=== PATIENT | male | born 1990 | race Caucasian/White ===

== ENCOUNTER 2017-08-29 07:45 | Emergency (ER) | payer SELFPAY ==
[~2017-08-29] VITALS: Ht 167.6 cm; Wt 83.9 kg
[2017-08-29 07:50] VITALS: Ht 167.6 cm; Wt 83.9 kg
[2017-08-29 08:50] VITALS: BP 142/87
== END 2017-08-29 08:50 | disposition home or self-care (01) ==
LOC: ED 07:45
DX: J98.01 Acute bronchospasm (principal); J02.9 Acute pharyngitis, unspecified; F41.9 Anxiety disorder, unspecified; Z88.0 Allergy status to penicillin

== ENCOUNTER 2017-10-26 14:27 | Emergency (ER) | payer MEDICAID ==
[~2017-10-26] VITALS: Ht 170.2 cm; Wt 83.9 kg
[2017-10-26 14:35] VITALS: BP 144/96; Ht 170.2 cm; Wt 83.9 kg
== END 2017-10-26 15:50 | disposition home or self-care (01) ==
LOC: ED 14:27
DX: F41.9 Anxiety disorder, unspecified (principal); Z88.0 Allergy status to penicillin; Z86.59 Personal history of other mental and behavioral disorders

== ENCOUNTER 2018-09-03 18:14 | Emergency (ER) | payer OTHER ==
[~2018-09-03] VITALS: Ht 170.2 cm; Wt 88.5 kg
[2018-09-03 18:33] VITALS: Ht 170.2 cm; Wt 88.5 kg
[2018-09-03 19:53] LABS: microscopic required? YES; urine erythrocyte TRACE (NEGATIVE)
[2018-09-03 21:04] VITALS: BP 122/70
== END 2018-09-03 21:04 | disposition home or self-care (01) ==
LOC: ED 18:14
DX: R30.0 Dysuria (principal); R03.0 Elevated blood-pressure reading, without diagnosis of hypertension; F41.9 Anxiety disorder, unspecified; Z88.0 Allergy status to penicillin; Z87.442 Personal history of urinary calculi
CPT/HCPCS: 87491; 87591

== ENCOUNTER 2019-04-19 20:05 | Emergency (ER) | payer OTHER ==
[~2019-04-19] VITALS: Ht 170.2 cm; Wt 90.7 kg
[2019-04-19 20:14] VITALS: BP 141/99; Ht 170.2 cm; Wt 90.7 kg
== END 2019-04-19 21:25 | disposition home or self-care (01) ==
LOC: ED 20:05
DX: J06.9 Acute upper respiratory infection, unspecified (principal); F41.9 Anxiety disorder, unspecified; Z88.0 Allergy status to penicillin; Z87.442 Personal history of urinary calculi

== ENCOUNTER 2019-08-31 00:43 | Emergency (ER) | payer OTHER ==
[~2019-08-31] VITALS: Ht 170.2 cm; Wt 94.3 kg
[2019-08-31 00:55] VITALS: Ht 170.2 cm; Wt 94.3 kg
[2019-08-31 04:26] VITALS: BP 137/98
== END 2019-08-31 04:26 | disposition home or self-care (01) ==
LOC: ED 00:43
DX: R10.13 Epigastric pain (principal); F41.9 Anxiety disorder, unspecified; Z88.0 Allergy status to penicillin; Z87.442 Personal history of urinary calculi

== ENCOUNTER 2020-04-23 00:06 | Emergency (ER) | payer OTHER | END 2020-04-23 00:25 | disposition other institution (70) | LOC: ED 00:06 | DX: Z02.89 Encounter for other administrative examinations (principal) ==

== ENCOUNTER 2020-04-23 00:06 | Emergency (ER) | payer SELFPAY ==
[~2020-04-23] VITALS: Ht 170.2 cm; Wt 83.9 kg
[2020-04-23 00:12] VITALS: Ht 170.2 cm; Wt 83.9 kg
== END 2020-04-23 00:25 | disposition other institution (70) ==
LOC: ED 00:06
DX: Z04.1 Encounter for examination and observation following transport accident (principal); R51 Headache; I10 Essential (primary) hypertension; Z88.0 Allergy status to penicillin